=== PATIENT | male | born 1965 | race Caucasian/White ===

== ENCOUNTER 2019-02-16 20:10 | Emergency (ER) | payer MEDICARE, BC ==
[2019-02-16 20:17] VITALS: BMI 47.0
[2019-02-16] MEDS ORDERED: VOLTAREN100 GM (20:20)
[2019-02-16] MEDS ORDERED: CYCLOBENZAPRINE10 MG PO (20:22)
[2019-02-16] MEDS ORDERED: ZANAFLEX4 MG PO (20:22)
[2019-02-16] MEDS ORDERED: OXYBUTYNIN CHLOR5 MG PO (20:23)
[2019-02-16] MEDS ORDERED: LASIX80 MG PO (20:23)
[2019-02-16] MEDS ORDERED: KLONOPIN1 MG PO (20:23)
[2019-02-16] MEDS ORDERED: ATIVAN0.5 MG PO (20:24)
[2019-02-16] MEDS ORDERED: PROZAC40 MG PO (20:24)
[2019-02-16] MEDS ORDERED: PROTONIX40 MG PO (20:25)
[2019-02-16] MEDS ORDERED: TOPAMAX50 MG PO (20:25)
[2019-02-16] MEDS ORDERED: GLUCOPHAGE500 MG PO (20:26)
[2019-02-16] MEDS ORDERED: METOPROLOL TART50 MG PO (20:26)
[2019-02-16] MEDS ORDERED: KLOR-CON M2020 MEQ PO (20:26)
[2019-02-16] MEDS ORDERED: DURAGESIC1 PATCH .3 PCA (20:29)
[2019-02-16 23:28] VITALS: BP 144/73
== END 2019-02-16 23:06 | disposition home or self-care (01) ==
LOC: D.ER 20:10
DX: S00.81XA Abrasion of other part of head, initial encounter (principal); V29.9XXA Motorcycle rider (driver) (passenger) injured in unspecified traffic accident, initial encounter; Y93.89 Activity, other specified; Y92.017 Garden or yard in single-family (private) house as the place of occurrence of the external cause; M54.5 Low back pain